=== PATIENT | female | born 1990 | race Caucasian/White ===

== ENCOUNTER 2022-07-23 13:25 | Emergency (ER) | payer SELFPAY ==
[~2022-07-23] VITALS: Ht 154.9 cm; Wt 47.6 kg
[2022-07-23 13:50] VITALS: BP 130/62
--- NOTE | 2022-07-23 14:10 | NUR ---
PT AMBULATED TO BED 7
--- NOTE | 2022-07-23 14:19 | NUR ---
DILIP CARL AT BEDSIDE FOR EVALUATION
--- NOTE | 2022-07-23 14:50 | NUR ---
31YO FEMALE PT IN FOR FOLLOW UP. PT CURRENTLY . PT STATES GOING TO OB AND TOLD TO COME TO ER DUE TO "NO FETUS FINDINGS" . REPORTS NAUSEA SINCE May. LMP WAS "3 YEARS AGO". DENIES V/D, CHEST PAIN , SOB, VAGINAL BLEEDING/DISCHARGE OR PAIN. PT AAOX4, RESPIRATIONS EVEN AND UNLABORED. HX: ASTHMA NKA
--- NOTE | 2022-07-23 14:57 | NUR ---
ULTRASOUND AT BEDSIDE
[2022-07-23 15:04] LABS: BASOPHILS % (AUTO) 0.5 % (0.0-2.0); EOSINOPHILS % (AUTO) 0.5 % (0.0-4.0); HEMATOCRIT 40.5 % (36-48); HEMOGLOBIN 13.6 g/dL (12.0-16.0); LYMPHOCYTES # (AUTO) 2.2 K/uL (2.5-16.5); LYMPHOCYTES % (AUTO) 26.5 % (20.5-51.1); MEAN CORPUSCULAR HEMOGLOBIN 30 pg (27-31); MEAN CORPUSCULAR HGB CONC 34 g/dL (33-37); MEAN CORPUSCULAR VOLUME 89.3 fL (80-94); MONOCYTES # (AUTO) 0.7 K/uL (0.8-1.0); MONOCYTES % (AUTO) 8.5 % (1.7-9.3); NEUTROPHILS # (AUTO) 5.2 K/uL (1.8-7.7); PLATELET COUNT (AUTO) 221 K/uL (140-450); RED BLOOD CELL COUNT(AUTO) 4.53 MIL/uL (4.20-5.40); RED CELL DISTRIBUTION WIDTH 13.5 % (11.6-13.7); WHITE BLOOD COUNT (AUTO) 8.1 K/uL (4.8-10.8)
[2022-07-23 15:30] LABS: ALBUMIN 4.4 g/dL (3.4-5.0); ANION GAP 15.5 (8-16); CARBON DIOXIDE 25.5 mmol/L (21-32); CREATININE 0.6 mg/dL (0.6-1.3); TOTAL BILIRUBIN 0.8 mg/dL (0.0-1.0)
[2022-07-23] MEDS ORDERED: ONDA-188 PO (16:19)
[2022-07-23 16:34] VITALS: BP 129/70
--- NOTE | 2022-07-23 16:34 | NUR ---
Patient discharged with v/s stable. Written and verbal after care instructions FOR VOMITING given and explained. Patient alert, oriented and verbalized understanding of instructions. Ambulatory with steady gait. All questions addressed prior to discharge. ID band removed. Patient advised to follow up with PMD. Rx of ZOFRAN given. Opportunity to ask questions provided and answered.
== END 2022-07-23 16:34 | disposition home or self-care (01) ==
LOC: MED 13:25
DX: O21.9 Vomiting of pregnancy, unspecified (principal); Z79.899 Other long term (current) drug therapy; Z3A.01 Less than 8 weeks gestation of pregnancy
CPT/HCPCS: 36415; 76856; 80053; 81002; 81025; 83690; 84702; 85025; 93976; 99284; Q0092